=== PATIENT | female | born 1980 | race Caucasian/White ===

== ENCOUNTER 2022-06-07 23:42 | Emergency (ER) | payer BC, OTHER ==
[~2022-06-07] VITALS: Ht 152.4 cm; Wt 83.0 kg
[2022-06-08] MEDS ORDERED: RIZATRIPTAN MLT 10 MG TAB PO PRN ×2 (06:20→06:35)
[2022-06-08] MEDS ORDERED: diphenhydrAMINE 50MG/ML VIAL IV ONE (06:20)
[2022-06-08] MEDS ORDERED: NS 1,000 ML IV ONE (06:20)
[2022-06-08] MEDS ORDERED: RIZA10TA58 PO (08:15)
[2022-06-08 08:32] VITALS: BP 119/73
== END 2022-06-08 08:35 | disposition home or self-care (01) ==
LOC: M ED 23:42 → EDBD 23:42 → M ED 06-08 08:35
DX: G43.909 Migraine, unspecified, not intractable, without status migrainosus (principal); E11.9 Type 2 diabetes mellitus without complications; I10 Essential (primary) hypertension; Z98.84 Bariatric surgery status; Z87.891 Personal history of nicotine dependence; Z88.5 Allergy status to narcotic agent; Z88.8 Allergy status to other drugs, medicaments and biological substances
CPT/HCPCS: 96361; 96374; 99284; J1200

== ENCOUNTER 2023-04-16 04:04 | Inpatient (IN) | payer BC, OTHER ==
[~2023-04-16] VITALS: Ht 152.4 cm; Wt 86.4 kg
[2023-04-16] VITALS (8 sets, daily range): BP systolic 107–117; BP diastolic 64–76; TEMP 97.3–98.6; O2SAT 93–96
[~2023-04-16 04:04] MED LIST: RIZA10TA58 PO
[2023-04-16 04:45] LABS: BASO # 0.1 10^3/uL (0.0-0.2); BASO % 0.5 % (0.0-1.0); EOS # 0.2 10^3/uL (0.0-0.5); EOS % 1.9 % (0.0-3.0); HEMATOCRIT 42.5 % (36.0-47.0); HEMOGLOBIN 14.1 g/dl (12.0-15.5); LYMPH # 3.5 10^3/uL (1.5-5.0); MEAN CORPUSCULAR HEMOGLOBIN 29.9 pg (27.0-33.0); MEAN CORPUSCULAR HGB CONC 33.2 g/dl (32.0-36.5); MONO # 0.8 10^3/uL (0.0-0.8); MONO % 6.6 % (2.0-8.0); NEUTROPHILS # 6.5 10^3/uL (1.5-8.5); NEUTROPHILS % 57.8 % (36.0-66.0); RED BLOOD COUNT 4.72 10^6/uL (4.00-5.40); WHITE BLOOD COUNT 11.3 10^3/uL (4.0-10.0)
[2023-04-16 05:02] LABS: LIPASE 69 U/L (12-53)
[2023-04-16 05:04] LABS: ALBUMIN 3.6 G/DL (3.2-5.2); ALKALINE PHOSPHATASE 88 U/L (46-116); ALT/SGPT 15 U/L (7.0-40); AST/SGOT 20 U/L (<34); BILIRUBIN,DIRECT < 0.1 MG/DL (<0.4); BILIRUBIN,TOTAL 0.2 MG/DL (0.3-1.2); BLOOD UREA NITROGEN 10 MG/DL (9-23); CALCIUM LEVEL 10.3 MG/DL (8.5-10.1); CARBON DIOXIDE LEVEL 24 MMOL/L (20-31); CHLORIDE LEVEL 109 MMOL/L (98-107); GLOMERULAR FILTRATION RATE > 60.0 (>58); GLUCOSE, FASTING 89 MG/DL (60-100); POTASSIUM SERUM 4.4 MMOL/L (3.5-5.1); SODIUM LEVEL 142 MMOL/L (136-145); TOTAL PROTEIN 7.2 G/DL (5.7-8.2)
[2023-04-16 05:05] LABS: HCG, SERUM QUALITATIVE NEGATIVE (NEGATIVE)
[2023-04-16] MEDS ORDERED: ISOVUE-370 76% 100ML VIAL As Ordered ONE (07:02)
[2023-04-16 07:56] LABS: CK-MB VALUE MASS < 1.0 NG/ML (<3.6)
[2023-04-16 07:58] LABS: CPK CREATINE PHOSPHOKINASE 35 U/L (34-145); MB/CK RELATIVE INDEX 2.85 (< OR =4)
[2023-04-16] MEDS ORDERED: PIPERACILLIN/TAZOBACTAM SOD 3.375 GM in D5W MINI-BAG PLUS 50 ML IV ONE (08:20)
[2023-04-16] MEDS ORDERED: LIDOCAINE 1% SDV 30ML VIAL As Ordered ONE (08:43)
[2023-04-16] MEDS ORDERED: MED REC IN PROGRESS XX SCH (09:00)
[2023-04-16] MEDS ORDERED: RIZA10TA58 PO (09:12)
[2023-04-16] MEDS ORDERED: AMOX875T PO (09:12)
[2023-04-16] MEDS ORDERED: LEXA1TAB2 PO (09:12)
[2023-04-16] MEDS ORDERED: IRON325T2 PO (09:12)
[2023-04-16] MEDS ORDERED: LISI10TA22 PO (09:12)
[2023-04-16] MEDS ORDERED: bariatric fusion PO (09:12)
[2023-04-16] MEDS ORDERED: TOPI100T9 PO (09:12)
[2023-04-16] MEDS ORDERED: HOME MED LIST COMPLETE! XX SCH (09:20)
[2023-04-16] MEDS ORDERED: MIDAZOLAM INJ 2MG/2ML VIAL As Ordered ONE (10:14)
[2023-04-16] MEDS ORDERED: propofoL 200 MG/20 ML VIAL As Ordered ONE (10:14)
[2023-04-16] MEDS ORDERED: ONDANSETRON 4MG 2ML VIAL As Ordered ONE (10:14)
[2023-04-16] MEDS ORDERED: fentaNYL 100 MCG/2 ML INJECTION As Ordered ONE (10:14)
[2023-04-16] MEDS ORDERED: ROCURONIUM BROMIDE 50MG/5ML VIAL As Ordered ONE ×2 (10:14→10:47)
[2023-04-16] MEDS ORDERED: LIDOCAINE 2% 100MG/5ML SDV (FOR ANES.) As Ordered ONE (10:14)
[2023-04-16] MEDS ORDERED: SUGAMMADEX SODIUM 500 MG/5 ML VIAL (BRIDION) As Ordered ONE (10:14)
[2023-04-16] MEDS ORDERED: PHENYLephrine 500MCG 5ML (100MCG/ML) SYRINGE As Ordered ONE (10:16)
[2023-04-16 10:25] LABS: CK-MB VALUE MASS < 1.0 NG/ML (<3.6)
[2023-04-16 10:26] LABS: CPK CREATINE PHOSPHOKINASE 27 U/L (34-145)
[2023-04-16] MEDS ORDERED: ACETAMINOPHEN 1000MG 100ML IV BAG As Ordered ONE (10:50)
[2023-04-16] MEDS ORDERED: HYDROmorphone HCL 2MG/ML 1ML VIAL As Ordered ONE (10:52)
[2023-04-16] MEDS: LR 1,000 ML IV SCH ×3 (11:44→22:37)
[2023-04-16] MEDS ORDERED: PERCOCET 5MG/325MG TAB PO PRN ×2 (11:45)
[2023-04-16] MEDS ORDERED: ONDANSETRON 4MG 2ML VIAL IV PRN (11:45)
[2023-04-16] MEDS ORDERED: KETOROLAC 30 MG/ML 1ML VIAL IV SCH (11:45)
[2023-04-16] MEDS ORDERED: fentaNYL 100 MCG/2 ML INJECTION IV PRN (11:45)
[2023-04-16] MEDS ORDERED: HYDROMORPHONE HCL 0.5 MG/ 0.5 ML SYRINGE IV PRN (11:45)
[2023-04-16] MEDS ORDERED: MORPHINE 4 MG/ML 1ML VIAL IV PRN (11:45)
[2023-04-16] MEDS ORDERED: RIZATRIPTAN MLT 10 MG TAB PO SCH (11:45)
[2023-04-16] MEDS ORDERED: oxyCODONE 5MG TAB PO PRN (11:45)
[2023-04-16] MEDS ORDERED: LR 1,000 ML IV SCH (11:45)
[2023-04-16] MEDS: SUCRALFATE SUSP 1GM/10ML UD PO SCH ×2 (13:06→22:37)
[2023-04-16] MEDS: TOPIRAMATE (TopAMAX) 100 MG TAB PO SCH (13:06)
[2023-04-16] MEDS: KETOROLAC 30 MG/ML 1ML VIAL IV SCH ×2 (13:07→22:38)
[2023-04-16] MEDS: ESCITALOPRAM OXALATE 10 MG TAB (LEXAPRO) PO SCH (13:07)
[2023-04-16] MEDS: PIPERACILLIN/TAZOBACTAM SOD 3.375 GM in D5W MINI-BAG PLUS 50 ML IV SCH ×2 (14:36→20:26)
[2023-04-16] MEDS: PANTOPRAZOLE 40MG VIAL IV SCH (20:26)
[2023-04-17 01:00] VITALS: BP 111/73; TEMP 97.9; O2SAT 95
[2023-04-17] MEDS: LR 1,000 ML IV SCH ×3 (03:18→22:18)
[2023-04-17] MEDS: PIPERACILLIN/TAZOBACTAM SOD 3.375 GM in D5W MINI-BAG PLUS 50 ML IV SCH ×4 (03:18→20:37)
[2023-04-17 05:00] VITALS: BP 114/76; TEMP 98.1; O2SAT 97
[2023-04-17] MEDS: SUCRALFATE SUSP 1GM/10ML UD PO SCH ×3 (06:00→22:17)
[2023-04-17] MEDS: KETOROLAC 30 MG/ML 1ML VIAL IV SCH ×3 (06:01→22:18)
[2023-04-17] MEDS: PANTOPRAZOLE 40MG VIAL IV SCH ×2 (08:52→20:38)
[2023-04-17] MEDS: TOPIRAMATE (TopAMAX) 100 MG TAB PO SCH (08:52)
[2023-04-17] MEDS: ESCITALOPRAM OXALATE 10 MG TAB (LEXAPRO) PO SCH (08:52)
[2023-04-17 09:00] VITALS: BP 112/75; TEMP 98.1; O2SAT 96
[2023-04-17 13:00] VITALS: BP 115/78; TEMP 98.6; O2SAT 96
[2023-04-17 20:00] VITALS: BP 118/76; TEMP 98.2; O2SAT 93
[2023-04-18] MEDS: PIPERACILLIN/TAZOBACTAM SOD 3.375 GM in D5W MINI-BAG PLUS 50 ML IV SCH ×4 (03:32→21:12)
[2023-04-18 06:00] VITALS: BP 117/82; TEMP 97.9; O2SAT 94
[2023-04-18 06:07] LABS: BASO % 0.2 % (0.0-1.0); EOS # 0.5 10^3/uL (0.0-0.5); HEMOGLOBIN 10.7 g/dl (12.0-15.5); LYMPH # 1.8 10^3/uL (1.5-5.0); LYMPH % 14.1 % (24.0-44.0); MEAN CORPUSCULAR HEMOGLOBIN 29.9 pg (27.0-33.0); MEAN CORPUSCULAR HGB CONC 32.4 g/dl (32.0-36.5); MEAN CORPUSCULAR VOLUME 92.2 fl (80.0-96.0); MONO # 1.2 10^3/uL (0.0-0.8); MONO % 9.4 % (2.0-8.0); NEUTROPHILS % 71.7 % (36.0-66.0); PLATELET COUNT, AUTOMATED 445 10^3/uL (150-450); RED BLOOD COUNT 3.58 10^6/uL (4.00-5.40); WHITE BLOOD COUNT 12.5 10^3/uL (4.0-10.0)
[2023-04-18] MEDS: SUCRALFATE SUSP 1GM/10ML UD PO SCH ×3 (06:34→21:11)
[2023-04-18] MEDS: KETOROLAC 30 MG/ML 1ML VIAL IV SCH ×3 (06:35→21:12)
[2023-04-18 06:40] LABS: BLOOD UREA NITROGEN 7 MG/DL (9-23); CALCIUM LEVEL 9.3 MG/DL (8.5-10.1); CARBON DIOXIDE LEVEL 24 MMOL/L (20-31); CHLORIDE LEVEL 111 MMOL/L (98-107); CREATININE FOR GFR 0.74 MG/DL (0.55-1.30); GLOMERULAR FILTRATION RATE > 60.0 (>58); GLUCOSE, FASTING 79 MG/DL (60-100); SODIUM LEVEL 143 MMOL/L (136-145)
[2023-04-18 07:45] VITALS: BP 120/79; TEMP 97.9; O2SAT 97
[2023-04-18] MEDS ORDERED: GASTROGRAFIN SOLUTION 30ML As Ordered ONE (07:46)
[2023-04-18] MEDS: PANTOPRAZOLE 40MG VIAL IV SCH ×2 (09:38→21:11)
[2023-04-18] MEDS: ESCITALOPRAM OXALATE 10 MG TAB (LEXAPRO) PO SCH (09:40)
[2023-04-18] MEDS: TOPIRAMATE (TopAMAX) 100 MG TAB PO SCH (09:40)
[2023-04-18] MEDS: LR 1,000 ML IV SCH ×2 (10:07→17:50)
[2023-04-18 14:00] VITALS: BP 129/91; TEMP 98.1; O2SAT 99
[2023-04-18 20:19] VITALS: BP 130/90; TEMP 98.6; O2SAT 98
[2023-04-19] MEDS: LR 1,000 ML IV SCH ×2 (02:15→11:13)
[2023-04-19] MEDS: PIPERACILLIN/TAZOBACTAM SOD 3.375 GM in D5W MINI-BAG PLUS 50 ML IV SCH ×2 (02:42→09:03)
[2023-04-19 05:19] VITALS: BP 130/86; TEMP 97.5; O2SAT 95
[2023-04-19] MEDS: SUCRALFATE SUSP 1GM/10ML UD PO SCH (05:25)
[2023-04-19] MEDS: KETOROLAC 30 MG/ML 1ML VIAL IV SCH (05:26)
[2023-04-19 06:28] LABS: BASO % 0.4 % (0.0-1.0); EOS # 0.6 10^3/uL (0.0-0.5); EOS % 5.9 % (0.0-3.0); HEMATOCRIT 30.8 % (36.0-47.0); HEMOGLOBIN 9.8 g/dl (12.0-15.5); LYMPH % 19.3 % (24.0-44.0); MEAN CORPUSCULAR HEMOGLOBIN 29.6 pg (27.0-33.0); MEAN CORPUSCULAR HGB CONC 31.8 g/dl (32.0-36.5); MEAN CORPUSCULAR VOLUME 93.1 fl (80.0-96.0); MONO # 0.8 10^3/uL (0.0-0.8); MONO % 7.6 % (2.0-8.0); NEUTROPHILS % 66.1 % (36.0-66.0); PLATELET COUNT, AUTOMATED 403 10^3/uL (150-450); RED BLOOD COUNT 3.31 10^6/uL (4.00-5.40); WHITE BLOOD COUNT 10.6 10^3/uL (4.0-10.0)
[2023-04-19 07:01] LABS: BLOOD UREA NITROGEN < 5 MG/DL (9-23); CALCIUM LEVEL 9.6 MG/DL (8.5-10.1); CARBON DIOXIDE LEVEL 23 MMOL/L (20-31); CHLORIDE LEVEL 113 MMOL/L (98-107); CREATININE FOR GFR 0.77 MG/DL (0.55-1.30); GLOMERULAR FILTRATION RATE > 60.0 (>58); GLUCOSE, FASTING 81 MG/DL (60-100); POTASSIUM SERUM 4.1 MMOL/L (3.5-5.1); SODIUM LEVEL 144 MMOL/L (136-145)
[2023-04-19 09:02] VITALS: BP 139/99
[2023-04-19] MEDS: TOPIRAMATE (TopAMAX) 100 MG TAB PO SCH (09:02)
[2023-04-19] MEDS: ESCITALOPRAM OXALATE 10 MG TAB (LEXAPRO) PO SCH (09:02)
[2023-04-19] MEDS: PANTOPRAZOLE 40MG VIAL IV SCH (09:02)
[2023-04-19] MEDS ORDERED: PANT40IN4 PO (12:05)
[2023-04-19] MEDS ORDERED: AUGM500T34 PO (12:05)
== END 2023-04-19 14:15 | disposition home or self-care (01) | DRG 223 ==
LOC: EDBD 04:04 → M ED 04:04 → M ED INP 09:00 → M MSPAV 12:18
PROVIDERS: ADMIT Surgery; ATTEND Surgery
PROC: 8E0W4CZ Robotic Assisted Procedure of Trunk Region, Percutaneous Endoscopic Approach (ICD-10-PCS; 2023-04-16)
PROC: 0DUA47Z Supplement Jejunum with Autologous Tissue Substitute, Percutaneous Endoscopic Approach (ICD-10-PCS; principal; 2023-04-16 08:27)
DX: K28.1 Acute gastrojejunal ulcer with perforation (principal); I10 Essential (primary) hypertension; E28.2 Polycystic ovarian syndrome; F41.9 Anxiety disorder, unspecified; F32.9 Major depressive disorder, single episode, unspecified; Z98.84 Bariatric surgery status; R50.82 Postprocedural fever; Z88.5 Allergy status to narcotic agent; Z79.899 Other long term (current) drug therapy; F10.10 Alcohol abuse, uncomplicated

== ENCOUNTER → 2023-08-11 | Day surgery (SDC) | payer BC, OTHER ==
[~2023-08-11] VITALS: Ht 152.4 cm; Wt 83.8 kg
[~2023-08-11] MED LIST changes: +AMOX875T PO; +AUGM500T34 PO; +IRON325T2 PO; +LEXA1TAB2 PO; +LISI10TA22 PO; +PANT40IN4 PO; +PANT40TA29 PO; +TOPI100T9 PO; +bariatric fusion PO; +propofoL 200 MG/20 ML VIAL As Ordered ONE
[2023-08-11] MEDS: NS 1,000 ML IV ONE (11:38)
[2023-08-11 13:06] VITALS: BP 109/67; TEMP 96.6; O2SAT 100
== END | disposition home or self-care (01) ==
LOC: M OPP 11:09
PROVIDERS: ATTEND Surgery
DX: K44.9 Diaphragmatic hernia without obstruction or gangrene (principal); Z98.84 Bariatric surgery status; K28.1 Acute gastrojejunal ulcer with perforation; Z08 Encounter for follow-up examination after completed treatment for malignant neoplasm; Z87.891 Personal history of nicotine dependence; Z79.899 Other long term (current) drug therapy; Z88.5 Allergy status to narcotic agent

== ENCOUNTER → 2025-04-07 | Outpatient (REF) | payer OTHER ==
[~2025-04-07] MED LIST changes: +AMOX875T; +TOPI-257 PO; -TOPI100T9 PO; +ULTR5TAB PO; -propofoL 200 MG/20 ML VIAL As Ordered ONE
== END ==
LOC: M LAB REF 12:02
PROVIDERS: ATTEND Internal Medicine
DX: R30.0 Dysuria (principal)

== ENCOUNTER 2025-04-22 14:34 | Outpatient (CLI) | payer BC ==
[~2025-04-22] VITALS: Ht 152.4 cm; Wt 88.6 kg
[~2025-04-22 14:34] MED LIST changes: +ALBUTEROL SULFATE 2.5 MG/0.5 ML INH CONCENTRATE NEB SOLN INH PRN; +EPINEPHrine INJ 1 MG/ML 1ML AMP IM PRN; +diphenhydrAMINE 50 MG/ML VIAL IV PRN
[2025-04-22 14:45] VITALS: BP 129/76; O2SAT 98
[2025-04-22] MEDS: IRON SUCROSE 200MG IVP IV ONE (14:48)
[2025-04-22 15:14] VITALS: BP 114/71; O2SAT 98
== END 2025-04-22 15:15 ==
LOC: M INFU 14:34
PROVIDERS: ATTEND Internal Medicine Medical Oncology
DX: D50.9 Iron deficiency anemia, unspecified (principal); Z88.5 Allergy status to narcotic agent; Z88.8 Allergy status to other drugs, medicaments and biological substances
CPT/HCPCS: 96374; J1756

== ENCOUNTER 2025-04-29 14:35 | Outpatient (CLI) | payer BC ==
[~2025-04-29] VITALS: Ht 152.4 cm; Wt 88.6 kg
[2025-04-29] MEDS: IRON SUCROSE 200MG IVP IV ONE (14:55)
[2025-04-29 15:00] VITALS: BP 140/85; O2SAT 97
[2025-04-29 15:30] VITALS: BP 122/75; O2SAT 98
== END 2025-04-29 15:30 | disposition home or self-care (01) ==
LOC: M INFU 14:35
PROVIDERS: ATTEND Internal Medicine Medical Oncology
DX: D50.9 Iron deficiency anemia, unspecified (principal); Z88.5 Allergy status to narcotic agent; Z88.8 Allergy status to other drugs, medicaments and biological substances
CPT/HCPCS: 96374; J1756

== ENCOUNTER 2025-05-06 14:29 | Outpatient (CLI) | payer BC ==
[~2025-05-06] VITALS: Ht 152.4 cm; Wt 88.6 kg
[2025-05-06] MEDS: IRON SUCROSE 200MG IVP IV ONE (14:52)
[2025-05-06 14:57] VITALS: BP 134/81; O2SAT 99
[2025-05-06 15:25] VITALS: BP 128/75; O2SAT 98
== END 2025-05-06 15:26 ==
LOC: M INFU 14:29
PROVIDERS: ATTEND Internal Medicine Medical Oncology
DX: D50.9 Iron deficiency anemia, unspecified (principal); Z88.5 Allergy status to narcotic agent; Z88.8 Allergy status to other drugs, medicaments and biological substances
CPT/HCPCS: 96374; J1756

== ENCOUNTER 2025-05-13 14:21 | Outpatient (CLI) | payer BC ==
[2025-05-13] MEDS: IRON SUCROSE 200MG IVP IV ONE (14:36)
[2025-05-13 15:10] VITALS: BP 122/66; O2SAT 99
== END 2025-05-13 15:10 | disposition home or self-care (01) ==
LOC: M INFU 14:21
PROVIDERS: ATTEND Internal Medicine Medical Oncology
DX: D50.9 Iron deficiency anemia, unspecified (principal); Z88.5 Allergy status to narcotic agent; Z88.8 Allergy status to other drugs, medicaments and biological substances
CPT/HCPCS: 96374; J1756

== ENCOUNTER 2025-05-20 14:29 | Outpatient (CLI) | payer BC ==
[~2025-05-20] VITALS: Ht 152.4 cm; Wt 81.8 kg
[2025-05-20 15:00] VITALS: BP 118/57; O2SAT 100
[2025-05-20] MEDS: IRON SUCROSE 200MG IVP IV ONE (15:00)
[2025-05-20 15:40] VITALS: BP 106/62; O2SAT 99
== END 2025-05-20 15:40 | disposition home or self-care (01) ==
LOC: M INFU 14:29
PROVIDERS: ATTEND Internal Medicine Medical Oncology
DX: D50.9 Iron deficiency anemia, unspecified (principal); Z88.5 Allergy status to narcotic agent; Z88.8 Allergy status to other drugs, medicaments and biological substances
CPT/HCPCS: 96374; J1756